=== PATIENT | male | born 1985 | race Caucasian/White ===

== ENCOUNTER 2020-06-06 12:29 | Emergency (ER) | payer BC ==
[2020-06-06 12:45] VITALS: BP 150/95; PULSE 82; O2SAT 98
--- NOTE | 2020-06-06 13:02 | ERPHSYRPT ---
- History of Present Illness Time Seen by Provider: 06/06/20 12:38 Source: patient Exam Limitations: no limitations Patient Subjective Stated Complaint: Laceration Triage Nursing Assessment: Patient ambulated back to ED and transferred self to bed. Patient A+O X 3. Patient's skin pink, warm and dry. Patient complains of laceration to top of thumb on left arm. 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 Laceration noted to left hand top of thumb 1.5 cm X 0.5cm. Patient complains of pain 5/10 to area. Physician History: 35 years old right-handed dominant male presented in the ER with chief complaint of laceration left thumb while butchering meat with a saw at home. There was bleeding initially but stopped with applying pressure. Is complaining of dull aching mild to moderate pain which is more with movements and better with being still. No numbness or tingling of the distal thumb. No weakness in the thumb. Up-to-date with tetanus. No injury anywhere else. Timing/Duration: sudden Quality: painful Severity: mild, moderate Location: hands Possible Causes: other Associated Symptoms: denies symptoms Allergies/Adverse Reactions: No Known Drug Allergies Allergy (Unverified 06/06/20 12:37) Home Medications: Lisinopril 20 mg [Zestril 20 MG] 1 tab PO DAILY 06/06/20 [History] Hx Tetanus, Diphtheria Vaccination/Date Given: Yes (February 29, 2020) Hx Influenza Vaccination/Date Given: No Hx Pneumococcal Vaccination/Date Given: No Immunizations Up to Date: Yes Travel Risk - International Travel Have you traveled outside of the country in past 3 weeks: No - Coronavirus Screening Are you exhibiting any of the following symptoms?: No Close contact with a COVID-19 positive Pt in past 14-21 Days: No - Review of Systems Constitutional: No Symptoms Eyes: No Symptoms Ears, Nose, & Throat: No Symptoms Respiratory: No Symptoms Cardiac: No Symptoms Abdominal/Gastrointestinal: No Symptoms Musculoskeletal: Injury Skin: No Symptoms, Skin Lesions Neurological: No Symptoms Psychological: No Symptoms Endocrine: No Symptoms Hematologic/Lymphatic: No Symptoms - Past Medical History Pertinent Past Medical History: Yes Neurological History: No Pertinent History ENT History: No Pertinent History Cardiac History: Hypertension Respiratory History: No Pertinent History Endocrine Medical History: No Pertinent History Musculoskeletal History: No Pertinent History GI Medical History: No Pertinent History History: No Pertinent History Psycho-Social History: No Pertinent History Male Reproductive Disorders: No Pertinent History Other Medical History: Von Willebrand disorder - Past Surgical History Past Surgical History: Yes Neuro Surgical History: No Pertinent History Cardiac: No Pertinent History Respiratory: No Pertinent History Gastrointestinal: No Pertinent History Genitourinary: No Pertinent History Musculoskeletal: No Pertinent History Male Surgical History: No Pertinent History 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 - Social History Smoking Status: Never smoker Exposure to second hand smoke: No Drug Use: none Patient Lives Alone: No - Nursing Vital Signs Nursing Vital Signs: Initial Vital Signs Temperature 98.0 F 06/06/20 12:38 Pulse Rate 82 06/06/20 12:38 Respiratory Rate 18 06/06/20 12:38 Blood Pressure 150/95 06/06/20 12:38 O2 Sat by Pulse Oximetry 98 06/06/20 12:38 Pain Scale Pain Intensity 5 - Physical Exam General Appearance: no apparent distress, alert Eye Exam: eyes nml inspection Neck Exam: normal inspection, full range of motion Respiratory Exam: normal breath sounds, lungs clear Cardiovascular Exam: regular rate/rhythm, normal heart sounds Extremity Exam: tenderness, other (2 cm laceration oblique at dorsal aspect of left first metacarpophalangeal joint area. No tendon exposed. Superficial. Intact range of motion at DIP independently. Intact distal neurovascular. No active bleeding or spurting.) Neurologic Exam: alert, oriented x 3, cooperative Skin Exam: normal color SpO2 Interpretation: normal SpO2: 98 O2 Delivery: Room Air Procedures - Laceration/Wound Repair Left Dorsal Finger Wound Location: Left, hand Wound Length (cm): 2 Wound's Depth, Shape: superficial Wound Explored: clean Irrigated: Yes Hibiclens Prep: Yes Anesthesia: 1% Lidocaine Volume Anesthetic (ccs): 3 Wound Repaired With: sutures Suture Size/Type: 4-0, prolene Number of Sutures: 4 Layer Closure?: No Sterile Dressing Applied?: Yes - Progress Progress: improved, re-examined Progress Note: 06/06/20 laceration is repaired. Treated with tetanus. It was a superficial injury, intact range of motion's, do not think needs imaging. Recommended Tylenol ibuprofen. Discussed signs symptoms of infection needing return to ER which he seems understanding. Stable for discharge. Counseled pt/family regarding: diagnosis, need for follow-up - Departure Departure Disposition: Home Clinical Impression: Thumb laceration Qualifiers: Encounter type: initial encounter Damage to nail status: without damage Foreign body presence: without foreign body Laterality: left Qualified Code(s): S61.012A - Laceration without foreign body of left thumb without damage to nail, initial encounter Condition: Stable Critical Care Time: No Referrals: МАРИНА ALBERTO MD [Primary Care Provider] - Follow Up with PCP/3 days Instructions: Laceration Repair With Stitches (DC) Additional Instructions: Use Tylenol/ibuprofen as needed for pain. Keep it clean and dry. Avoid repetitive movements. Suture removal in 10 to 14 days. Return to ER for any worsening pain swelling redness discharge/fever or chills.
== END 2020-06-06 13:12 | disposition home or self-care (01) ==
LOC: ED 12:29
DX: S61.012A Laceration without foreign body of left thumb without damage to nail, initial encounter (principal); W31.89XA Contact with other specified machinery, initial encounter
CPT/HCPCS: 12001; 99283